=== PATIENT | female | born 2005 | race Two or more races ===

== ENCOUNTER 2025-03-20 08:51 | Emergency (ER) | payer MEDICAID, SELFPAY ==
[2025-03-20 08:59] VITALS: BP 173/109; PULSE 139; RESP 19; TEMP 38.3; O2SAT 95; BMI 40.1
--- NOTE | 2025-03-20 09:16 | EDNOTE_ITS ---
ED Ear RME/HPI General Chief complaint: Ear Stated complaint: BILATERAL EAR PAIN, FEVER Time Seen by Provider: 03/20/25 08:55 Arrival date/time: 03/20/25 08:51 This is a 19-year-old female that comes in with complaints of right ear pain and left ear feeling clogged. Patient states she has been sick for over a week and a half with runny nose, cough, congestion and sore throat. Patient also reports fever. Patient denies any past medical history. Patient states that there is sick contacts at home. Related Data Previous Rx's ?Medication ?Instructions ?Recorded azithromycin 250 mg tablet See Rx Instructions PO .COM PLEX #6 03/20/25 tabs ibuprofen 800 mg tablet 800 mg PO Q6H PRN pain #10 t abs 03/20/25 Allergies Allergy/AdvReac Type Severity Reaction Status Date / Time Penicillins Allergy Rash Verified 03/20/25 08:54 Course Vital Signs Vital signs: Vital Signs Temperature 100.9 F H 03/20/25 08:59 Pulse Rate 139 H 03/20/25 08:59 Respiratory Rate 19 03/20/25 08:59 Blood Pressure 173/109 H 03/20/25 08:59 Pulse Oximetry (%) 95 03/20/25 08:59 Oxygen Delivery Method Room Air 03/20/25 08:59 Medical Decision Making MDM Narrative MDM Narrative: Right TM looks erythemic. Will treat for right otitis media. Patient will be sent home on antibiotics. Patient told to follow-up with primary provider in 1 to 2 days. Come back to the emergency room if symptoms change or worsen. Discharge Plan Plan Patient Disposition: HOME (Self Care) Patient condition on transfer: Stable Prescriptions/Referrals Prescriptions/Med Rec: New ibuprofen 800 mg tablet 800 mg PO Q6H PRN (Reason: pain) Qty: 10 0RF azithromycin 250 mg tablet See Rx Instructions .ROUTE .COMPLEX Qty: 6 0RF Rx Instructions: For 250 mg dose pack: take 500 mg today (day 1), then 250 mg for 4 days (days 2-5) Problem List Clinical Impression: Otitis media Patient/Caregiver Discharge Instructions Discharge Activity: activity as tolerated Education Materials: ED Otitis Media Antibiotic ... Additional Instructions: Follow up with primary provider in 1-2 days. Come back to ED if symptoms change or worsen Print Language: Korean Stand Alone Forms: [employer] Award Info., Patient Portal Info Letter PA/BEHAVIORAL PSYCHOLOGIST Supervising Physician PA/BEHAVIORAL PSYCHOLOGIST Supervising Physician: [email or web address]
[2025-03-20] MEDS: AZITHROMYCIN 250 MG TABLET 500 MG PO (09:40)
[2025-03-20] MEDS: IBUPROFEN TAB 400 MG TABLET 800 MG PO (09:41)
[2025-03-20] MEDS: ACETAMINOPHEN 500 MG TABLET 1000 MG PO (09:42)
[2025-03-20 10:05] VITALS: BP 143/86; PULSE 125; RESP 18; TEMP 37.1; O2SAT 97
[2025-03-20 10:25] VITALS: BP 139/94; PULSE 127; RESP 18; TEMP 37.1; O2SAT 97
[2025-03-20 10:42] VITALS: PULSE 118
== END 2025-03-20 10:42 | disposition home or self-care (01) ==
LOC: SERX 09:49
PROVIDERS: Emergency Provider Emergency Medicine; PCP Family Medicine
DX: H66.93 Otitis media, unspecified, bilateral (principal)
CPT/HCPCS: 99282; A9270